=== PATIENT | male | born 1995 | race Caucasian/White ===

== ENCOUNTER 2019-12-05 17:45 | Emergency (ER) | payer SELFPAY | END 2019-12-05 17:50 | LOC: ER 17:54 | PROVIDERS: Emergency Provider Physician Assistant | DX: R69 Illness, unspecified (principal) ==

== ENCOUNTER 2021-06-09 15:01 | Emergency (ER) | payer MEDICAID, SELFPAY ==
[2021-06-09 15:06] VITALS: BP 130/88; PULSE 112; RESP 16; TEMP 36.7; O2SAT 97
--- NOTE | 2021-06-09 15:29 | W.ED.GENAD ---
Discharge Plan Disposition Patient Disposition: HOME Condition: Improving Discharge Details Clinical Impression: Laceration of left ring finger Primary Care Provider: Unknown,Unknown ED Provider: Jaime Humphreys Home Meds and New Rx's Prescriptions: New cephalexin 500 mg capsule 500 mg PO TID 3 Days Qty: 9 RF: 0 Discharge Instructions Instructions: Finger Laceration (ED) Additional Instructions: Leave dressing in place, clean and dry, for 5-7 days time. Take antibiotics as prescribed until finished. Our care management team will arrange a followup for you at [facility]. Medical Decision Making L ring finger volar laceration with knife this morning. Normal motor, sensory, and distal cap refill. Does not penetrate through the full depth of the dermis. Tetanus up to date. Placed in bulky dressing over surgicell, and will leave in place 5-7 days. Will have pt followup with [facility] for recheck/1st visit (previously enrolled w them). HPI General Mode of arrival: ambulatory. Date/Time Provider Initiated Documentation: 06/09/21 15:13. Limitations to Documentation: no limitations. Information obtained by: patient. History of Present Illness 25 year old M presents to the emergency department with the chief complaint of finger laceration, described as mild, and is localized to the left and upper extremity. Patient reports no radiation. Patient started experiencing this hour(s) and it has been constant. No relieving factors improve symptom(s), No exacerbating factors reported . Patient did receive the following treatments prior to arrival, none Related Data Home Medications Medication Instructions Recorded Confirmed cephalexin 500 mg PO TID 3 Days #9 cap 06/09/21 Previous Rx's Medication Instructions Recorded cephalexin 500 mg PO TID 3 Days #9 cap 06/09/21 Allergies Allergy/AdvReac Type Severity Reaction Status Date / Time pertussis vaccine,adsorbed Allergy Severe Anaphylaxis Unverified 06/09/21 15:09 General Stated Complaint: Laceration JOSE: 4 Review of Systems Narrative: , tetanus up to date [facility] Social History Smoking risk assessment performed?: No Exam Narrative Exam Narrative: GEN; AAO x3, NAD RESP; Normal effort and excursion, no distress Ext: L ring finger volar laceration, shallow, 5mm, overlying distal phalanx. Normal motor, sensory, cap refill. Course Vital Signs Vital signs: Vital Signs Temperature 36.7 C 06/09/21 15:06 Pulse 112 H 06/09/21 15:06 Respiratory Rate 16 06/09/21 15:06 Blood Pressure 130/88 06/09/21 15:06 Pulse Oximetry 97 06/09/21 15:06 Temperature 36.7 C 06/09/21 15:06 Temperature Source Temporal Artery Scan 06/09/21 15:06 Pulse 112 H 06/09/21 15:06 Respiratory Rate 16 06/09/21 15:06 Blood Pressure 130/88 06/09/21 15:06 Blood Pressure Position Sitting 06/09/21 15:06 Pulse Oximetry 97 06/09/21 15:06 Oxygen Delivery Method Room Air 06/09/21 15:06 Oxygen Flow Rate 0 06/09/21 15:06 Pain Level 6 06/09/21 15:06 Comment 06/09/21 15:06
--- NOTE | 2021-06-09 17:22 | NUR.NOTE ---
Nursing Note: Referral faxed to [facility], patient states he is on list for new pt appt, follow up for laceration, 10 to 14 days, Jenny Helton
== END 2021-06-09 16:45 | disposition home or self-care (01) ==
PROVIDERS: Emergency Provider Emergency Medicine
DX: S61.215A Laceration without foreign body of left ring finger without damage to nail, initial encounter (principal); W26.0XXA Contact with knife, initial encounter
CPT/HCPCS: 99283; 99282

== ENCOUNTER 2021-08-01 20:12 | Outpatient (REF) | payer MEDICAID, SELFPAY | END 2021-08-01 20:13 | disposition home or self-care (01) | LOC: LBN 20:12 | PROVIDERS: Visit Provider Physician Assistant Medical | DX: J34.0 Abscess, furuncle and carbuncle of nose | CPT/HCPCS: 87077; 87070; 87186; 87205 ==